=== PATIENT | female | born 1960 | race Caucasian/White ===

== ENCOUNTER 2019-01-05 13:20 | Emergency (ER) | payer OTHER ==
[~2019-01-05] VITALS: Ht 157.5 cm; Wt 113.4 kg
--- NOTE | 2019-01-05 13:20 | NUR ---
Patient to ER bed 2 to gown for evaluation. Side rails up. Report given to ALIICA Whyte.
--- NOTE | 2019-01-05 13:22 | NUR ---
Patient is awake, alert, and oriented x4. She is complaining of SOB and chest pain. She states a history of anxiety. Denies nausea, vomiting.
[2019-01-05 13:25] VITALS: BP_SYST 123
--- NOTE | 2019-01-05 13:25 | NUR ---
ER Dr. Smith at bedside examining patient.
[2019-01-05] MEDS ORDERED: KETOROLAC TROMETHAMINE 30 MG VIAL IVP ONE (13:30)
[2019-01-05] MEDS ORDERED: NACL 0.9% 1,000 ML IV ONE (13:30)
[2019-01-05] MEDS ORDERED: ASPIRIN 81 MG TAB.CHEW PO ONE (13:30)
[2019-01-05] MEDS ORDERED: LORazepam 2 MG/ML VIAL IVP ONE (13:30)
[2019-01-05 13:53] LABS: BASOPHILS % (AUTO) 0.3 % (0.0-2.0); EOSINOPHILS # (AUTO) 0.3 K/uL (0.0-0.4); EOSINOPHILS % (AUTO) 2.7 % (0.0-4.0); HEMATOCRIT 38.1 % (36-48); LYMPHOCYTES # (AUTO) 3.5 K/uL (1.0-5.5); MEAN CORPUSCULAR HEMOGLOBIN 29 pg (27-31); MEAN CORPUSCULAR HGB CONC 34 % (32-36); MEAN CORPUSCULAR VOLUME 84 fL (79.0-98.0); MONOCYTES # (AUTO) 0.7 K/uL (0.0-1.0); NEUTROPHILS # (AUTO) 5.1 K/uL (1.8-7.7); PLATELET COUNT (AUTO) 295 K/uL (130-430); RED BLOOD CELL COUNT(AUTO) 4.53 MIL/uL (4.2-6.2); RED CELL DISTRIBUTION WIDTH 14.7 % (9.0-15.0); WHITE BLOOD COUNT (AUTO) 9.5 K/uL (4.8-10.8)
[2019-01-05 13:57] LABS: ANION GAP 10 (5-15); CALCIUM 9.7 mg/dL (8.4-11.0); CHLORIDE 99 mmol/L (98-107); GLUCOSE 200 mg/dL (70-99); POTASSIUM 3.5 mmol/L (3.5-5.1); SODIUM SERUM 138 mmol/L (136-145); UREA NITROGEN, BLOOD 10 mg/dL (8-21)
[2019-01-05 14:05] LABS: ALANINE AMINOTRANSFERASE 35 U/L (12-78); ALBUMIN 3.8 g/dL (3.4-4.8); ASPARTATE AMINOTRANSFERASE 19 U/L (10-37); TOTAL BILIRUBIN 0.4 mg/dL (0.0-1.0)
[2019-01-05 14:08] LABS: GFR AFRICAN AMERICAN 111 mL/min (>90)
[2019-01-05] MEDS ORDERED: MORPHINE 2 MG/ML INJ. SYRINGE IM ONE (14:45)
[2019-01-05 15:34] VITALS: BP_SYST 118
--- NOTE | 2019-01-05 15:34 | NUR ---
Note husammark in EDM - 01/05/19 at 1535 by [email or web address] Patient given written and verbal discharge instructions and verbalizes understanding. ER discussed with patient the results and treatment provided. Patient in stable condition. ID arm band removed. IV catheter removed intact and dressing applied, no active bleeding. Rx of xanax given. Patient educated on pain management and to follow up with PMD. Pain Scale 0/10. Opportunity for questions provided and answered. Medication side effect fact sheet provided.
--- NOTE | 2019-01-05 15:34 | NUR ---
Patient given written and verbal discharge instructions and verbalizes understanding. ER MD discussed with patient the results and treatment provided. Patient in stable condition. ID arm band removed. IV catheter removed intact and dressing applied, no active bleeding. Rx of xanax given. Patient educated on pain management and to follow up with PMD. Pain Scale 0/10. Opportunity for questions provided and answered. Medication side effect fact sheet provided.
== END 2019-01-05 15:34 | disposition home or self-care (01) ==
LOC: SED 13:20
DX: R07.89 Other chest pain (principal); R06.4 Hyperventilation; I10 Essential (primary) hypertension; E11.9 Type 2 diabetes mellitus without complications
CPT/HCPCS: 36415; 71045; 80053; 82962; 84484; 85025; 93005; 96372; 96374; 96375; 99284; J1885; J2060; J2270; J7030